=== PATIENT | female | born 1945 | race Caucasian/White ===

== ENCOUNTER → 2016-06-24 | Day surgery (SDC) | payer OTHER | END | disposition home or self-care (01) | LOC: FAS 13:31 | DX: C92.Z0 Other myeloid leukemia not having achieved remission (principal); Z86.73 Personal history of transient ischemic attack (TIA), and cerebral infarction without residual deficits; K29.70 Gastritis, unspecified, without bleeding; K21.9 Gastro-esophageal reflux disease without esophagitis; M19.90 Unspecified osteoarthritis, unspecified site; E78.5 Hyperlipidemia, unspecified; G47.30 Sleep apnea, unspecified; Z96.659 Presence of unspecified artificial knee joint; Z80.3 Family history of malignant neoplasm of breast; Z87.891 Personal history of nicotine dependence; Z79.82 Long term (current) use of aspirin; Z79.899 Other long term (current) drug therapy | CPT/HCPCS: 88305; 88311; 88313; J2704 ==

== ENCOUNTER 2016-07-09 16:11 | Emergency (ER) | payer OTHER ==
[2016-07-09 16:58] LABS: INR 1.16 (0.9-1.2); PROTHROMBIN TIME 14.4 SECONDS (11.7-14.0); PTT 29.7 SECONDS (23.2-31.4)
[2016-07-09 17:00] LABS: BASOPHIL 0.9 % (0-2); EOSINOPHIL 0.6 % (0-7); HCT 26.8 % (37.0-47.0); HGB 8.5 g/dl (12.5-16.0); LYMPHOCYTE 24.8 % (15-48); MCH 29.9 pg (25.0-31.0); MCHC 31.7 g/dL (32.0-36.0); MCV 94.4 fL (78.0-100.0); NEUTROPHIL 7.6 % (41-80); RBC 2.84 M/uL (4.20-5.40); RDW 19.7 % (11.5-14.0); WBC 5.4 K/uL (4.0-10.5)
[2016-07-09 17:04] LABS: ALBUMIN 4.4 g/dL (3.4-4.8); BILIRUBIN - TOTAL 0.6 mg/dL (0.1-1.0); CREATININE 0.8 mg/dL (0.5-1.0); GLOBULIN (CALCULATION) 2.8 g/dL (2.2-4.2); MAGNESIUM 1.79 mg/dL (1.40-2.10); PHOSPHORUS 2.1 mg/dL (2.7-4.5); POTASSIUM 3.8 mmol/L (3.5-5.1); TOTAL PROTEIN 7.2 g/dL (6.4-8.3)
[2016-07-09 17:06] LABS: MONOCYTE 66.1 % (0-12)
[2016-07-09 17:09] LABS: PLT 117 K/uL (150-400)
[2016-07-09 18:17] LABS: BILIRUBIN NEGATIVE (NEGATIVE); BLOOD NEGATIVE Ery/uL (NEGATIVE); CLARITY SLIGHTLY HAZY (CLEAR); COLOR YELLOW (YELLOW); GLUCOSE (U) NORMAL (NORMAL); KETONE (U) NEGATIVE (NEGATIVE); LEUKOCYTES TRACE Leu/uL (NEGATIVE); NITRITE NEGATIVE (NEGATIVE); PROTEIN 1+ mg/dL (NEGATIVE); pH 8.5 (5.0-9.0)
[2016-07-09 18:27] LABS: BACTERIA TRACE; SQUAMOUS EPITHELIAL CELLS RARE
== END 2016-07-09 20:00 | disposition home or self-care (01) ==
LOC: FER 16:11
PROVIDERS: Internal Medicine
DX: K57.30 Diverticulosis of large intestine without perforation or abscess without bleeding (principal); C95.90 Leukemia, unspecified not having achieved remission; F03.90 Unspecified dementia, unspecified severity, without behavioral disturbance, psychotic disturbance, mood disturbance, and anxiety; Z87.19 Personal history of other diseases of the digestive system
CPT/HCPCS: 36415; 80053; 81001; 82150; 83690; 83735; 84100; 85025; 85610; 85730; C9113; J1170; J2270; J2405

== ENCOUNTER 2016-07-11 18:12 | Emergency (ER) | payer OTHER ==
[2016-07-11 20:59] LABS: BASOPHIL 0.6 % (0-2); EOSINOPHIL 0.4 % (0-7); HCT 26.9 % (37.0-47.0); HGB 8.5 g/dl (12.5-16.0); LYMPHOCYTE 29.1 % (15-48); MCH 30.2 pg (25.0-31.0); MCHC 31.6 g/dL (32.0-36.0); MCV 95.7 fL (78.0-100.0); MONOCYTE 64.4 % (0-12); NEUTROPHIL 5.5 % (41-80); RBC 2.81 M/uL (4.20-5.40); RDW 20.1 % (11.5-14.0); WBC 10.8 K/uL (4.0-10.5)
[2016-07-11 21:09] LABS: PLT 65 K/uL (150-400)
[2016-07-11 21:17] LABS: LACTIC ACID 2.2 mmol/L (0.5-2.2)
[2016-07-11 21:18] LABS: ALBUMIN 4.1 g/dL (3.4-4.8); BILIRUBIN - TOTAL 0.6 mg/dL (0.1-1.0); CREATININE 0.8 mg/dL (0.5-1.0); GLOBULIN (CALCULATION) 3.2 g/dL (2.2-4.2); POTASSIUM 4.3 mmol/L (3.5-5.1); TOTAL PROTEIN 7.3 g/dL (6.4-8.3)
[2016-07-11 23:34] LABS: BILIRUBIN NEGATIVE (NEGATIVE); BLOOD 1+ Ery/uL (NEGATIVE); CLARITY CLEAR (CLEAR); COLOR YELLOW (YELLOW); GLUCOSE (U) NORMAL (NORMAL); KETONE (U) NEGATIVE (NEGATIVE); LEUKOCYTES TRACE Leu/uL (NEGATIVE); NITRITE POSITIVE (NEGATIVE); PROTEIN TRACE (LOW) mg/dL (NEGATIVE); UROBILINOGEN 0.2 mg/dL (0.2-1.0); pH 5.5 (5.0-9.0)
[2016-07-11 23:38] LABS: BACTERIA TRACE; SQUAMOUS EPITHELIAL CELLS RARE; URINARY WBC RARE
== END 2016-07-12 02:27 | disposition other institution (70) ==
LOC: FER 18:12
PROVIDERS: Internal Medicine
DX: I26.99 Other pulmonary embolism without acute cor pulmonale (principal); R10.9 Unspecified abdominal pain; K21.9 Gastro-esophageal reflux disease without esophagitis; C95.90 Leukemia, unspecified not having achieved remission; Z86.718 Personal history of other venous thrombosis and embolism; Z79.899 Other long term (current) drug therapy
CPT/HCPCS: 36415; 71010; 71275; 80053; 81001; 83605; 83690; 84484; 85025; 85379; 87804; 87899; 93005; J1170; J2405; Q9967